=== PATIENT | male | born 1955 | race Caucasian/White ===

== ENCOUNTER → 2017-02-07 | Outpatient (CLI) | payer BC ==
[~2017-02-07] MED LIST: FISH OIL 500 M1 EAC1 PO; LIALDA1.2 GM PO; LIPITOR TAB 2020 MG PO; MULTIVITAMINS1 EAC1 PO; PLAVIX 75 MG TA75 MG PO; ZETIA10 MG PO
[2017-02-07 09:02] LABS: BUN/CREATININE RATIO 14 (0-10)
== END ==
LOC: LAB 08:05
PROVIDERS: Emergency Medicine
DX: I25.10 Atherosclerotic heart disease of native coronary artery without angina pectoris (principal); E78.2 Mixed hyperlipidemia; K51.00 Ulcerative (chronic) pancolitis without complications
CPT/HCPCS: 36415; 80053; 80061; 83704